=== PATIENT | male | born 1995 | race Caucasian/White ===

== ENCOUNTER 2023-04-03 21:33 | Emergency (ER) | payer MEDICAID, OTHER ==
[~2023-04-03] VITALS: Ht 167.6 cm; Wt 73.0 kg
[2023-04-03 21:36] VITALS: O2SAT 99
[2023-04-03] MEDS ORDERED: LORAZEPAM 2MG/ML CPJ IV STA (22:44)
[2023-04-03] MEDS ORDERED: ONDANSETRON HCL 4MG/2ML INJ IV STA (22:44)
[2023-04-03 23:27] LABS: HEMATOCRIT. 47.6 % (42.0-52.0); HEMOGLOBIN. 16.8 g/dL (14.0-18.0); MEAN CORPUSCULAR HEMOGLOBIN 35.3 pg (28.0-32.0); MEAN CORPUSCULAR VOLUME 99.7 fL (80.0-94.0); MEAN PLATELET VOLUME 7.2 fl (7.4-10.4); PLATELET 213 x1000/uL (130-400); RED BLOOD CELL COUNT 4.78 mill/uL (4.7-6.1)
[2023-04-03 23:40] LABS: CHLORIDE 103 mEq/L (98-107)
[2023-04-03 23:48] LABS: ETHANOL BLOOD < 10 mg/dL (-10)
[2023-04-04] MEDS ORDERED: ONDA4TAB50 MT (04:34)
[2023-04-04] MEDS ORDERED: L10 MT (04:34)
[2023-04-04 05:24] VITALS: BP 158/97; PULSE 68; RESP 16; TEMP 98.4
[2023-04-04 08:35] LABS: PLATELET ESTIMATE NORMAL
== END 2023-04-04 05:24 | disposition home or self-care (01) ==
LOC: ER 21:33
DX: F10.239 Alcohol dependence with withdrawal, unspecified (principal); Y90.0 Blood alcohol level of less than 20 mg/100 ml; Z88.2 Allergy status to sulfonamides
CPT/HCPCS: 80053; 80320; 83605; 85025; 36415; 71045; 93005; 96374; 96375; 99285; J2060; J2405; G0480